=== PATIENT | female | born 1985 | race African-American/Black ===

== ENCOUNTER 2023-06-18 12:51 | Emergency (ER) | payer BC ==
[~2023-06-18] VITALS: Ht 170.2 cm; Wt 79.4 kg
== END 2023-06-18 20:42 | disposition home or self-care (01) ==
LOC: ER 12:51
DX: M54.9 Dorsalgia, unspecified (principal); M54.59 Other low back pain; V49.9XXA Car occupant (driver) (passenger) injured in unspecified traffic accident, initial encounter; Y93.9 Activity, unspecified; Y92.9 Unspecified place or not applicable; Y99.9 Unspecified external cause status